=== PATIENT | female | born 1955 | race Hispanic/Latino ===

== ENCOUNTER 2018-10-22 06:49 | Day surgery (SDC) | payer OTHER ==
[2018-10-19 12:37] VITALS: BP 139/62
[2018-10-19 12:48] LABS: BASOPHILS % (AUTO) 0.6 % (0.0-5.0); EOSINOPHILS % (AUTO) 2.2 % (0.0-8.0); HEMATOCRIT 36.9 % (36-48); LYMPHOCYTES % (AUTO) 22.2 % (21.0-51.0); MEAN CORPUSCULAR HEMOGLOBIN 24.2 pg (27.0-33.0); MEAN CORPUSCULAR HGB CONC 31.6 g/dL (32.0-36.0); MEAN CORPUSCULAR VOLUME 76.5 fL (79-99); MONOCYTES % (AUTO) 5.8 % (3.0-13.0); NEUTROPHILS % (AUTO) 69.2 % (40.0-77.0); NUCLEATED RED BLOOD CELLS 0.1 % (0.0-0.19); PLATELET COUNT (AUTO) 331 K/uL (130-400); RED BLOOD CELL COUNT(AUTO) 4.83 MIL/uL (4.00-5.50); RED CELL DISTRIBUTION WIDTH 16.2 % (11.0-15.5); WHITE BLOOD COUNT (AUTO) 8.4 K/uL (4.8-10.8)
[2018-10-19 13:02] LABS: CREATININE 0.7 mg/dL (0.5-1.5); POTASSIUM 4.3 mmol/L (3.5-5.1)
[2018-10-22] VITALS (16 sets, daily range): BP systolic 117–145; BP diastolic 48–64
[~2018-10-22] VITALS: Ht 166.4 cm; Wt 72.4 kg
[~2018-10-22 06:49] MED LIST: ATOR40TA71 PO; IBUP-2070 PO; INSU300I SQ; LACTATED RINGERS 1000ML 1,000 ML IV SCH; SITA1TAB2 PO
[2018-10-22] MEDS ORDERED: PROPOFOL 10 MG/ML 20ML VIAL IV ONE (07:22)
[2018-10-22] MEDS ORDERED: LIDOCAINE PF 2% 5ML ABBOJECT ONE (07:22)
[2018-10-22] MEDS ORDERED: FENTANYL CITRATE PF 50 MCG/1 ML 2ML VIAL ONE (07:22)
[2018-10-22] MEDS ORDERED: STRONG IODINE SOLUTION 30ML BOTTLE ONE (07:29)
[2018-10-22] MEDS ORDERED: ACETIC ACID 0.25% 1,000 ML IRRIG.SOLN ONE (07:31)
[2018-10-22] MEDS ORDERED: VASOPRESSIN 20 UNITS/ML 1ML VIAL ONE ×2 (07:32→08:26)
--- NOTE | 2018-10-22 07:53 | NUR ---
VALUABLES: CLOTHING, MEDICATIONS, READING GLASSES, CELL PHONE AND PURSE GIVEN TO [employer].
[2018-10-22] MEDS ORDERED: ONDANSETRON HCL 4 MG/2 ML VIAL ONE (08:36)
[2018-10-22] MEDS ORDERED: MEPERIDINE-PF 25 MG/ML SYG ONE (09:09)
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
--- NOTE | 2018-10-22 10:10 | NUR ---
dc dc instructions given to pt / boyfriend with rx, instructed on new med regimen and possible side effects of new med. instructed to f/u with Dr. Currie on 10-30-18. verbalized understanding. pt denies any pain or discomforts. pt getting dress will go home when ready. pt denies any pain or discomforts. celena pad dry no bleeding noted.
--- NOTE | 2018-10-22 10:20 | NUR ---
dc pt dc home via wc/ no distress noted. accompanied by boyfriend
== END 2018-10-22 10:20 | disposition home or self-care (01) ==
LOC: DAH 06:49
PROVIDERS: ATTEND Specialist
DX: N87.0 Mild cervical dysplasia (principal); E11.9 Type 2 diabetes mellitus without complications; Z79.4 Long term (current) use of insulin; Z98.890 Other specified postprocedural states; Z79.899 Other long term (current) drug therapy
CPT/HCPCS: 36415; 57520; 80048; 82948 ×2; 85025; 88307; 93005; A4351; A4510; A4600; J2001; J2175; J2405; J2704; J3010; J3490 ×2; J7120

== ENCOUNTER → 2024-09-10 | Outpatient (CLI) | payer MEDICARE ==
[~2024-09-10] MED LIST changes: -LACTATED RINGERS 1000ML 1,000 ML IV SCH
--- NOTE | 2024-09-10 12:00 | HMCIMG ---
MAMMO SCREENING BILATERAL HISTORY: Screening mammogram. COMPARISON: 05/09/2018 TECHNIQUE: Bilateral screening mammogram with CAD was performed with craniocaudal and mediolateral oblique projections. FINDINGS: There are scattered areas of fibroglandular density. There is no evidence of a dominant mass, or suspicious microcalcification. There is no evidence of nipple retraction or skin thickening. IMPRESSION: 1. Stable mammogram. Patient was entered into a reminder system with a target due date for their next mammogram. BI-RADS: CATEGORY 2: BENIGN FINDINGS Recommend monthly self breast exam as well as annual clinical examination. A negative x-ray should not delay biopsy if a dominant or clinically suspicious mass is present, since 8-10% of cancers are not identified by mammography. Dense breasts particularly, may obscure an underlying neoplasm. Some of these may be detected clinically and therefore, clinical examination is an essential part of breast evaluation.
== END | disposition home or self-care (01) ==
LOC: RAH 11:34
PROVIDERS: ATTEND Obstetrics & Gynecology
DX: Z12.31 Encounter for screening mammogram for malignant neoplasm of breast (principal); R92.323 Mammographic fibroglandular density, bilateral breasts
CPT/HCPCS: 77067